=== PATIENT | male | born 2000 | race Caucasian/White ===

== ENCOUNTER 2021-03-03 09:07 | Emergency (ER) | payer OTHER ==
[2021-03-03 09:52] VITALS: BP 119/75; PULSE 616
[2021-03-03] MEDS ORDERED: Fluorescein 1 MG Ophth Strip EYELF ONE (09:53)
[2021-03-03] MEDS ORDERED: Proparacaine 0.5% Ophth Soln 15 ML Bottle EYELF ONE (09:54)
--- NOTE | 2021-03-03 10:22 | EDM.PDOC ---
ED HPI GENERAL MEDICAL PROBLEM - General Chief Complaint: Eye Problems Stated Complaint: EYE REDNESS Time Seen by Provider: 03/03/21 09:52 Source of Information: Reports: Patient History Limitations: Reports: No Limitations - History of Present Illness INITIAL COMMENTS - FREE TEXT/NARRATIVE: The patient presents with metal in his left eye. He says this happened on . He has pain and some blurry vision to the left eye. He has no other problems. He has no allergies. Onset: Sudden Duration: Day(s): (2) Location: Reports: Other (left eye) Quality: Reports: Sharp Severity: Moderate Improves with: Reports: None Worsens with: Reports: None Associated Symptoms: Reports: No Other Symptoms Left Eye Pain Score (Numeric/FACES): 7 - Related Data Allergies Allergy/AdvReac Type Severity Reaction Status Date / Time No Known Allergies Allergy Verified 03/03/21 09:52 Home Meds: Home Meds Ciprofloxacin [Ciloxan 0.3% Ophth Soln] 1 drop EYELF Q4H #1 bottle 03/03/21 [Rx] Past Medical History - Past Health History Medical/Surgical History: Denies Medical/Surgical History Social & Family History - Tobacco Use Tobacco Use Status *Q: Current Every Day Tobacco User Years of Tobacco use: 4 Packs/Tins Daily: 0.5 - Caffeine Use Caffeine Use: Reports: Soda - Recreational Drug Use Recreational Drug Use: No ED ROS GENERAL - Review of Systems Review Of Systems: See Below Constitutional: Reports: No Symptoms HEENT: Reports: Eye Pain Respiratory: Reports: No Symptoms Cardiovascular: Reports: No Symptoms Endocrine: Reports: No Symptoms GI/Abdominal: Reports: No Symptoms : Reports: No Symptoms Musculoskeletal: Reports: No Symptoms ED EXAM GENERAL W FULL EYE - Physical Exam Exam: See Below Exam Limited By: No Limitations General Appearance: Alert, No Apparent Distress Eye Exam: Left Eye: Conjunctival Injection, Foreign Body, Bilateral Eye: EOMI, PERRL Visual Acuity (R) 20/: 10 Visual Acuity (L) 20/: 40 With Correction: No Eyelids: Bilateral: Normal Appearance Conjunctiva & Sclera: Left: Conjunctival Edema Cornea Exam: Left: Foreign Body Extraocular Movements: Bilateral: Intact ED EYE w/ Add Procedure - Eye Procedure Alcaine Drops Administered: Yes (Proparicaine) Eye FB Removal: Other (Eye spud) Eye Irrigated w/ Saline (ccs): 5 Antibiotic Oinment/Drps Admin: Left Eye Course - Vital Signs Last Recorded V/S: Last Vital Signs Temp 97.9 F 03/03/21 09:48 Pulse 616 H 03/03/21 09:48 Resp 16 03/03/21 09:48 BP 119/75 03/03/21 09:48 Pulse Ox 99 03/03/21 09:48 - Orders/Labs/Meds Meds: Medications Discontinued Medications Generic Name Dose Route Start Last Admin Trade Name [place] PRN Reason Stop Dose Admin Fluorescein Sodium 1 mg 03/03/21 09:53 03/03/21 10:03 Fluorescein 1 Mg Ophth Strip EYELF 03/03/21 09:54 1 mg ONETIME ONE Administration Proparacaine HCl 1 ml 03/03/21 09:54 03/03/21 10:03 Proparacaine 0.5% Ophth Soln 15 Ml Bottle EYELF 03/03/21 09:55 1 drop ONETIME ONE Administration - Re-Assessments/Exams Free Text/Narrative Re-Assessment/Exam: 03/03/21 10:19 There was a piece of metal in his left eye. I was able to remove it with an eye spud. I will get him on some cipro drops. Departure - Departure Time of Disposition: 10:20 Disposition: Home, Self-Care 01 Condition: Good Clinical Impression: Corneal foreign body Qualifiers: Encounter type: initial encounter Laterality: left Qualified Code(s): T15.02XA - Foreign body in cornea, left eye, initial encounter Corneal abrasion Qualifiers: Encounter type: initial encounter Laterality: left Qualified Code(s): S05.02XA - Injury of conjunctiva and corneal abrasion without foreign body, left eye, initial encounter - Discharge Information *PRESCRIPTION DRUG MONITORING PROGRAM REVIEWED*: Not Applicable *COPY OF PRESCRIPTION DRUG MONITORING REPORT IN PATIENT LARRY: Not Applicable Prescriptions: Ciprofloxacin [Ciloxan 0.3% Ophth Soln] 1 drop EYELF Q4H #1 bottle Referrals: PCP,None [Primary Care Provider] - Additional Instructions: Use the cipro eye drops 1 drop in the left eye every 4 hours while awake for 1 week. Take tylenol or motrin for pain. Please return if you are worse or see an merchandise supervisor in town. Sepsis Event Note (ED) - Evaluation Sepsis Screening Result: No Definite Risk - Focused Exam Vital Signs: Vital Signs Temp Pulse Resp BP Pulse Ox 03/03/21 09:48 97.9 F 616 H 16 119/75 99
== END 2021-03-03 10:30 | disposition home or self-care (01) ==
LOC: JD.ED 09:07
DX: T15.02XA Foreign body in cornea, left eye, initial encounter (principal); Z72.0 Tobacco use
CPT/HCPCS: 65205; 99282; 99283

== ENCOUNTER 2025-06-26 02:21 | Emergency (ER) | payer BC, OTHER ==
[2025-06-26 02:44] VITALS: BP 142/101; PULSE 76
== END 2025-06-26 04:00 | disposition home or self-care (01) ==
LOC: JD.ED 02:21
DX: Z00.00 Encounter for general adult medical examination without abnormal findings (principal)
CPT/HCPCS: 99284